=== PATIENT | female | born 1990 | race Two or more races ===

== ENCOUNTER 2019-07-02 15:51 | Emergency (ER) | payer MEDICAID, OTHER ==
[~2019-07-02] VITALS: Ht 162.6 cm; Wt 61.2 kg
[2019-07-02 16:03] VITALS: BP 129/90
== END 2019-07-02 16:12 | disposition home or self-care (01) ==
LOC: ER 15:51
DX: S19.89XA Other specified injuries of other specified part of neck, initial encounter (principal); F10.10 Alcohol abuse, uncomplicated; Y90.9 Presence of alcohol in blood, level not specified; V49.49XA Driver injured in collision with other motor vehicles in traffic accident, initial encounter; Y93.89 Activity, other specified; Y92.488 Other paved roadways as the place of occurrence of the external cause; Y99.8 Other external cause status